=== PATIENT | female | born 1955 | race Caucasian/White ===

== ENCOUNTER 2019-10-04 11:18 | Emergency (ER) | payer MEDICAID ==
[~2019-10-04] VITALS: Ht 160 cm; Wt 73.9 kg
[2019-10-04 11:23] VITALS: Ht 160 cm; Wt 73.9 kg
[2019-10-04 13:08] VITALS: BP 117/73
== END 2019-10-04 13:08 | disposition home or self-care (01) ==
LOC: ED 11:18
DX: R51 Headache (principal); R53.83 Other fatigue